=== PATIENT | female | born 1960 | race Caucasian/White ===

== ENCOUNTER 2016-11-14 21:45 | Emergency (ER) | payer BC ==
[2016-11-14 22:30] VITALS: BP 130/80
[2016-11-15] MEDS ORDERED: Acetaminophen 325 MG Tab PO ONE (00:31)
--- NOTE | 2016-11-15 00:33 | EDM.PDOC ---
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 Timing/Duration: Reports: Hour(s): Location: Reports: other (lower rt rib cage area. 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: Hematologic History: Reports: Anticoagulation therapy - Infectious Disease History Infectious Disease History: Reports: Chicken pox - Past Surgical History GI Surgical History: Reports: Cholecystectomy Social & Family History - Tobacco Use Smoking Status *Q: Never Smoker Second Hand Smoke Exposure: Yes - Caffeine Use Caffeine Use: Reports: Coffee - Recreational Drug Use Recreational Drug Use: No ED ROS GENERAL - Review of Systems Review Of Systems: See Below Constitutional: Reports: no symptoms HEENT: Reports: No symptoms Respiratory: Reports: No Symptoms, Other (Pain in her left lower rib cage area. 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 She hit her left shoulder but she now has pain her left lower rib cage area. Exam Limited By: No limitations General Appearance: alert, mild distress Ears Exam: normal TMs Nose Exam: normal inspection Throat/Mouth Exam: Normal inspection Head Exam: atraumatic Neck Exam: non-tender Cardiovascular/Respiratory: regular rate, rhythm, other ( she is tender to palpate in the left lower rib cage. ) GI/Abdominal: soft, non tender Rectal (Female) Exam: Deferred Extremities: normal inspection Neurologic: alert, oriented x 3 Psychiatric: normal affect Course - Vital Signs Last Recorded V/S: Last Vital Signs Temp 38.2 C H 11/14/16 22:28 Pulse 91 11/14/16 22:28 Resp 16 11/14/16 22:28 BP 130/80 11/14/16 22:28 Pulse Ox 100 11/14/16 22:28 - Orders/Labs/Meds Orders: Active Orders 24 hr Category Date Time Status Ribs 2V w Chest Lt [CR] Stat Exams 11/15/16 00:31 Taken Meds: Medications Discontinued Medications Generic Name Dose Route Start Last Admin Trade Name Freq PRN Reason Stop Dose Admin Acetaminophen 650 mg 11/15/16 00:31 11/15/16 01:06 Tylenol PO 11/15/16 00:32 650 mg NOW ONE Administration Departure - Departure Time of Disposition: 01:54 Disposition: Home, Self-Care 01 Condition: fair Clinical Impression: Contusion of left chest wall Instructions: Contusion, [id number] Referrals: Gucci Kinney MD [Primary Care Provider] - Forms: ED Department Discharge Care Plan Goals: cool pack to area, tylenol 650 q6h prn for pain, forceful deep breath, no work tomorrow. - My Orders Last 24 Hours: My Active Orders 11/15/16 00:31 Ribs 2V w Chest Lt [CR] Stat - Assessment/Plan Last 24 Hours: My Active Orders 11/15/16 00:31 Ribs 2V w Chest Lt [CR] Stat
--- NOTE | 2016-11-15 09:28 | CR ---
Ribs 2V w Chest Lt HISTORY: Fall COMPARISON: None FINDINGS: Chest is clear. Cardiac size pulmonary vessels normal. No effusions. Left ribs demonstrate no fracture or destructive process.
== END 2016-11-15 02:00 | disposition home or self-care (01) ==
LOC: JP.ED 21:45
DX: S20.212A Contusion of left front wall of thorax, initial encounter (principal); Z90.49 Acquired absence of other specified parts of digestive tract; Z88.1 Allergy status to other antibiotic agents; Z88.5 Allergy status to narcotic agent; W01.198A Fall on same level from slipping, tripping and stumbling with subsequent striking against other object, initial encounter
CPT/HCPCS: 71101; 99284; A9270

== ENCOUNTER 2017-07-28 06:47 | Day surgery (SDC) | payer BC ==
[~2017-07-28 06:47] MED LIST: Lidocaine 1% with EPINEPHrine 1:100,000 50 ML MDV ONE; Sodium Chloride 0.9% 10 ML ONE; Sodium Tetradecyl Sulfate 1% 20 MG/2 ML SDV ONE
[2017-07-28] MEDS ORDERED: Sodium Chloride 0.9% 1,000 ML IV SCH (07:30)
[2017-07-28] MEDS ORDERED: Propofol 200 MG/20 ML SDV ONE ×3 (08:13→09:07)
[2017-07-28] MEDS ORDERED: fentaNYL 100 MCG/2 ML SDV ONE (08:13)
[2017-07-28] MEDS ORDERED: Midazolam 1 MG/ML 2 ML SDV ONE (08:14)
[2017-07-28] MEDS: Lidocaine 1% w/EPINEPHrine 50 ML, Sodium Bicarbonate 5 MEQ in Sodium Chloride 0.9% 950 ML INJECT SCH (08:30)
[2017-07-28] MEDS ORDERED: Sodium Chloride 0.9% 500 ML ONE (08:36)
[2017-07-28] MEDS ORDERED: Sodium Chloride 0.9% 10 ML SDV ONE (08:43)
[2017-07-28] MEDS ORDERED: fentaNYL 250 MCG/5 ML SDV ONE (08:54)
[2017-07-28 10:42] VITALS: BP 121/75
--- NOTE | 2017-07-28 14:49 | OR ---
DATE OF PROCEDURE: 07/28/2017 PROCEDURE: 1. Radiofrequency ablation of right lesser saphenous vein. 2. Radiofrequency ablation of right greater saphenous vein. 3. Radiofrequency ablation of left greater saphenous vein. 4. Sclerotherapy, left leg, multiple. 5. Sclerotherapy, right leg, multiple. 6. Compression wrapping, left leg ([id number]). 7. Compression wrapping, right leg ([id number]). COMPLICATIONS: None. SENIOR BUSINESS DEVELOPMENT ANALYST: None. PREOPERATIVE DIAGNOSIS: Venous/varicose vein insufficiency with inflammation and pain. POSTOPERATIVE DIAGNOSIS: Venous/varicose vein insufficiency with inflammation and pain. RISKS: Risks, benefits, alternatives, limitations including, but not limited to infection bleeding, DVT formation, and other risks not listed here, were explained to the patient, who wished to proceed. PROCEDURE IN DETAIL: The patient was placed in supine position. The right LSV was addressed first. This would be accessed using a 21-gauge needle, then exchanged for a 35,000 wire after anesthetizing with lidocaine and then an introduction of a 7-Greek sheath under ultrasound guidance. The RFA probe was advanced to greater than 3 cm from the deep junction. Tumescent fluid would be injected around 1 cm jacket, and this would to be verified a second and third time. Direct even pressure was then applied. The RFA was applied times two proximal and distal and times one in all other segments. Sheath and device were then removed. Direct pressure was held for 10 minutes, and Dermabond was applied. The left GSV was then addressed. The same would be performed as described in the manner above. This was in the same manner, same fashion, same sequence, same technique using the same equipment. This would also be verified a second and third time for tumescent fluid injection. Sclerotherapy was then performed to the left and right legs using 0.33% sodium tetradecyl. This was always drawn back to ensure intravascular injection only, 5 on the right and 4 on the left. Compression wrapping using a 2-stage compression wrap system was then performed. This was a proximal to distal gradient using 30 mm pressure and this was then [id number] fashion. The patient tolerated the procedure well. Tobi Abacra MD /[id number]
== END 2017-07-28 10:42 | disposition home or self-care (01) ==
LOC: JP.SDS 06:47
PROVIDERS: ATTEND Surgery
DX: I83.813 Varicose veins of bilateral lower extremities with pain (principal); I87.2 Venous insufficiency (chronic) (peripheral); I83.11 Varicose veins of right lower extremity with inflammation; I83.12 Varicose veins of left lower extremity with inflammation; Z88.1 Allergy status to other antibiotic agents; Z88.8 Allergy status to other drugs, medicaments and biological substances
CPT/HCPCS: 29581; 36471; 36475; 36476; J1642; J2250; J2704; J3010; J7040; J7050; J3490

== ENCOUNTER 2022-02-12 09:41 | Emergency (ER) | payer BC ==
[2022-02-12] MEDS ORDERED: Sodium Chloride 0.9% 10 ML Syringe FLUSH PRN (09:55)
[2022-02-12 12:34] LABS: CORONAVIRUS COVID-19 NAA POSITIVE (NEGATIVE)
[2022-02-12 12:45] VITALS: BP 124/72; PULSE 59
== END 2022-02-12 13:22 | disposition home or self-care (01) ==
LOC: JP.ED 09:41
DX: U07.1 COVID-19 (principal); R20.0 Anesthesia of skin; D72.819 Decreased white blood cell count, unspecified; F41.9 Anxiety disorder, unspecified; Z79.01 Long term (current) use of anticoagulants
CPT/HCPCS: 0241U; 36415; 70450; 70450-26; 80048; 85025; 85610; 86618; 93005; 93010; 99283; 99284-25

== ENCOUNTER 2024-09-10 02:19 | Emergency (ER) | payer BC ==
[2024-09-10 02:31] VITALS: BP 142/98; PULSE 90
[2024-09-10 03:00] LABS: BASOPHILS PERCENT AUTO 0.6 % (0.1-1.3); EOSINOPHILS PERCENT AUTO 0.6 % (0.0-5.4); HEMATOCRIT 36.8 % (34.3-46.0); HEMOGLOBIN 13.1 g/dL (11.2-15.5); IMMATURE GRAN PERCENT AUTO 0.3 % (0.0-0.7); LYMPHOCYTES ABSOLUTE AUTO 1.08 K/uL (0.8-3.3); MEAN CORPUSCULAR HEMOGLOBIN 32.2 pg (31.6-35.5); MEAN CORPUSCULAR HGB CONC 35.6 g/dL (31.6-35.5); MEAN CORPUSCULAR VOLUME 90.4 fL (81.4-99.0); MONOCYTES ABSOLUTE AUTO 0.27 K/uL (0.20-0.90); MONOCYTES PERCENT AUTO 7.8 % (3.3-12.6); NEUTROPHILS ABSOLUTE AUTO 2.08 K/uL (1.0-7.6); NEUTROPHILS PERCENT AUTO 59.7 % (40.0-78.1); PLATELET COUNT,PLT 148 K/uL (130-375); RED BLOOD CELL COUNT 4.07 M/uL (3.77-5.24); WHITE BLOOD CELL COUNT,WBC 3.5 K/uL (3.2-11.0)
[2024-09-10 03:02] LABS: BASOPHILS ABSOLUTE AUTO 0.02 K/uL (0.00-0.10); EOSINOPHILS ABSOLUTE AUTO 0.02 K/uL (0.00-0.40); IMMATURE GRAN ABSOLUTE AUTO 0.01 K/uL (0.00-0.23)
[2024-09-10] MEDS: Sodium Chloride 0.9% 1,000 ML IV SCH (03:08)
[2024-09-10] MEDS: Prochlorperazine 10 MG/2 ML SDV IVPUSH ONE (03:11)
[2024-09-10] MEDS: HYDROmorphone 0.5 MG/0.5 ML Syringe IVPUSH ONE (03:15)
[2024-09-10 03:22] LABS: ALANINE AMINOTRANSFERASE,ALT 50 U/L (12-78); ALBUMIN 3.8 g/dL (3.4-5.0); ALKALINE PHOSPHATASE 54 U/L (46-116); ASPARTATE AMNIOTRANSFERASE,AST 28 U/L (15-37); BILIRUBIN TOTAL 0.9 mg/dL (0.2-1.0); BLOOD UREA NITROGEN,BUN 12 mg/dL (7-18); CALCIUM 8.6 mg/dL (8.5-10.1); CARBON DIOXIDE,CO2 27 mmol/L (21-32); CHLORIDE,CL 95 mmol/L (100-108); CREATININE 0.9 mg/dL (0.6-1.0); ESTIMATED GFR 73 mL/min (>60); GLUCOSE RANDOM 115 mg/dL (74-106); POTASSIUM,K 3.5 mmol/L (3.6-5.2); PROTEIN TOTAL,TP 7.5 g/dL (6.4-8.2); SODIUM,NA 131 mmol/L (140-148)
[2024-09-10 03:42] LABS: ANION GAP 12.5 mmol/L (5.0-14.0)
[2024-09-10] MEDS: diphenhydrAMINE 50 MG/ML SDV IVPUSH ONE (03:54)
[2024-09-10] MEDS: Ketorolac 30 MG/ML SDV IVPUSH ONE (03:54)
== END 2024-09-10 04:55 | disposition home or self-care (01) ==
LOC: JP.ED 02:19
DX: G43.909 Migraine, unspecified, not intractable, without status migrainosus (principal); Z90.49 Acquired absence of other specified parts of digestive tract; Z79.01 Long term (current) use of anticoagulants; Z79.899 Other long term (current) drug therapy; Z79.1 Long term (current) use of non-steroidal anti-inflammatories (NSAID); Z88.1 Allergy status to other antibiotic agents; Z88.5 Allergy status to narcotic agent
CPT/HCPCS: 36415; 70450; 80053; 85025; 96361; 96374; 96375; 99283; 99284; J0780; J1200; J1885; J7030